=== PATIENT | female | born 1980 | race Caucasian/White ===

== ENCOUNTER 2016-12-30 14:58 | Outpatient (CLI) | payer OTHER ==
[2012-10-06 10:55] VITALS: BP 108/67
[2016-12-30 15:46] LABS: eGFR (African) > 60; eGFR (Non-African) > 60
== END 2016-12-30 15:00 ==
LOC: LAB 14:58
PROVIDERS: ATTEND Psychiatry & Neurology Psychiatry
DX: Z79.899 Other long term (current) drug therapy (principal)
CPT/HCPCS: 36415; 80048; 80178; 84443

== ENCOUNTER 2017-12-14 13:15 | Outpatient (CLI) | payer OTHER ==
[2017-05-22 16:29] VITALS: BP 108/67
--- NOTE | 2017-12-14 17:09 | Diagnostic Imaging Report ---
ARMANDO ROGERS [facility] [id number] [address] [facility] [address] [place] [address]. [id number] Report Submission Date: Dec 14, 2017 5:08:27 PM CDT Patient Study Name: KEVAN PACKER Date: Dec 14, 2017 1:34:18 PM CDT Modality Type: US Gender: F Description: : [birth year] Institution: [facility] Physician: ARMANDO ROGERS Pelvic ultrasound History: Right pelvic pain Transverse and longitudinal images were obtained through the pelvis transabdominally. The uterus is anteverted. The endometrium measures 1.2 cm in thickness which would be within normal limits for a premenopausal female. The myometrium is unremarkable. The left ovary measures 3.0 x 1.8 x 2.4 cm in greatest dimension and appears normal. There is normal flow to the left ovary. The right ovary measures 2.3 x 1.6 x 1.7 cm in greatest dimension and demonstrates a simple 1.7 cm follicular type cyst. There is normal flow to the right ovary as well. There is no free fluid in the cul de sac. Nabothian cysts of the cervix are present. Impression: Normal pelvic ultrasound for age. Electronically signed on Dec 14, 2017 5:08:27 PM CDT by: Melany HEDRICK
== END 2017-12-14 13:20 ==
LOC: RAD 13:15
PROVIDERS: ATTEND Family Medicine
DX: R10.31 Right lower quadrant pain (principal)
CPT/HCPCS: 76705; 76830